=== PATIENT | male | born 1975 | race Caucasian/White ===

== ENCOUNTER → 2017-02-21 | Day surgery (SDC) | payer BC ==
[~2017-02-21] VITALS: Ht 188 cm; Wt 104.0 kg
[~2017-02-21] MED LIST: ASPIR 8181 M1 PO; FENOFIBRATE PO; FENOFIBRATE160 M1 PO; GLIMEPIRIDE1 MG PO; Habitrol,Nicoderm CQ TD; LIPITOR10 MG PO; LISINOPRIL2.5 MG; LISINOPRIL2.5 MG PO; LISINOPRIL5 MG PO; LOVAZA1 GM; LOVAZA1 GM PO; Lopid PO; METFORMIN HCL500 M1; METFORMIN HCL500 M1 PO; METFORMIN HCL500 MG PO; NIASPAN,SLO-N1000 MG; NIASPAN,SLO-N1000 MG PO; NIASPAN,SLO-NI500 MG PO; Protonix PO; SLO-NIACIN500 MG PO; VARENICLINE 1 MG
[2017-02-21 13:06] LABS: POINT-OF-CARE METER ID UU13113696
[2017-02-21 14:08] LABS: HEMATOCRIT 40.3 % (38.0-50.0); MCH 32.7 PG (29.0-34.0); MCHC 36.5 G/DL (30.0-36.0); MCV 89.8 FL (86-99); MEAN PLAT.VOLUME 8.4 uM^3 (9.0-12.4); PLATELET COUNT 280 K/uL (156-360); RBC DIS.WIDTH-CV 12.4 % (11.8-14.6); RBC DIS.WIDTH-SD 40.5 % (39-53); RED BLOOD COUNT 4.49 M/uL (4.00-5.50); WHITE BLOOD COUNT 10.6 K/uL (4.1-10.2)
[2017-02-21 14:47] LABS: ANION GAP 8 MEQ/L (2-14); CHLORIDE 100 MEQ/L (99-109); POTASSIUM 4.1 MEQ/L (3.7-5.4); SAMPLE HEMOLYSIS CHECK 0; SAMPLE ICTERIC CHECK 0; SAMPLE LIPEMIA CHECK 0; SODIUM 133 MEQ/L (136-147)
[2017-02-21 14:52] LABS: GFR ESTIMATE (CALCULATED) > 59 mL/min/; GLUCOSE 141 mg/dL (70-99); UREA NITROGEN (BUN) 12 mg/dL (9-23)
== END | disposition home or self-care (01) ==
LOC: CATH 10:52
PROVIDERS: Internal Medicine Cardiovascular Disease
PROC: B2111ZZ Fluoroscopy of Multiple Coronary Arteries using Low Osmolar Contrast (ICD-10-PCS; principal; 2017-02-21)
PROC: 4A023N7 Measurement of Cardiac Sampling and Pressure, Left Heart, Percutaneous Approach (ICD-10-PCS; principal; 2017-02-21)
PROC: B2151ZZ Fluoroscopy of Left Heart using Low Osmolar Contrast (ICD-10-PCS; principal; 2017-02-21)
DX: I25.10 Atherosclerotic heart disease of native coronary artery without angina pectoris (principal); I10 Essential (primary) hypertension; E11.9 Type 2 diabetes mellitus without complications; E78.5 Hyperlipidemia, unspecified; Z87.891 Personal history of nicotine dependence; Z82.49 Family history of ischemic heart disease and other diseases of the circulatory system; Z79.84 Long term (current) use of oral hypoglycemic drugs
CPT/HCPCS: 80048; 82948; 85027; C1769; C1887; J1644; J2250; J3010

== ENCOUNTER → 2018-02-01 | Outpatient (CLI) | payer BC | END | disposition home or self-care (01) | LOC: RES 10:40 | DX: R06.00 Dyspnea, unspecified (principal) | CPT/HCPCS: 94060; 94726; 94729 ==